=== PATIENT | male | born 1995 | race African-American/Black ===

== ENCOUNTER 2017-12-19 10:42 | Emergency (ER) | payer MEDICAID ==
[~2017-12-19] VITALS: Ht 182.9 cm; Wt 61.2 kg
[2017-12-19 11:04] VITALS: BP 122/86
== END 2017-12-19 12:17 | disposition home or self-care (01) ==
LOC: ER 10:42
DX: J02.9 Acute pharyngitis, unspecified (principal); M25.522 Pain in left elbow; R11.2 Nausea with vomiting, unspecified
CPT/HCPCS: 73080

== ENCOUNTER 2018-01-20 12:35 | Emergency (ER) | payer MEDICAID ==
[~2018-01-20] VITALS: Ht 182.9 cm; Wt 61.2 kg
[2018-01-20 12:54] VITALS: BP 134/85
[2018-01-20] MEDS ORDERED: AZITHROMYCIN 250 MG TAB PO ONE (14:15)
[2018-01-20] MEDS ORDERED: cefTRIAXone SOD 500 MG VL IM ONE (14:15)
== END 2018-01-20 14:53 | disposition home or self-care (01) ==
LOC: ER 12:35
DX: A64 Unspecified sexually transmitted disease (principal)
CPT/HCPCS: 96372; 99283; J0696

== ENCOUNTER 2018-06-24 15:07 | Emergency (ER) | payer MEDICAID ==
[~2018-06-24] VITALS: Ht 172.7 cm; Wt 65.8 kg
[2018-06-24] MEDS ORDERED: SODIUM CHLORIDE 0.9% 1,000 ML IV ONE ×4 (15:43→18:22)
[2018-06-24 15:58] LABS: Basophils # (auto) 0 uL; Basophils % (auto) 0.5 % (0.0-2.0); Eosinophils # (auto) 0.1 uL; Eosinophils % (auto) 1.7 % (0.0-7.0); Hematocrit 38.5 % (41.0-53.0); Hemoglobin 13.1 g/dL (13.5-17.5); Lymphocytes # (auto) 0.8 uL; Mean Corpuscular Hemoglobin 31.7 pg (28.0-32.0); Mean Corpuscular Volume 93.3 fL (80.0-100.0); Monocytes # (auto) 0.6 uL; Monocytes % (auto) 9.1 % (0.0-12.0); Neutrophils # (auto) 5.3 uL; Neutrophils % (auto) 77.7 % (37.0-80.0); Nucleated Red Blood Cells % 0.1 %; Platelet Count (auto) 206 10^3/uL (140-450); Red Blood Cells 4.13 10^6/uL (4.5-5.90); Red Cell Distribution Width 12.3 % (11.8-14.3); White Blood Cell 6.8 10^3/uL (4.4-10.8)
[2018-06-24 16:16] LABS: Albumin 3.7 g/dL (3.4-5.0); BUN/Creatinine Ratio 13.5; Bilirubin, Total 1.2 mg/dL (0.2-1.0); Potassium 3.4 mmol/L (3.5-5.1); Total Protein 6.4 g/dL (6.4-8.2)
[2018-06-24 17:21] LABS: Urine Amorphous Crystal MOD /hpf (None Seen); Urine Bacteria FEW /hpf (None Seen); Urine Blood 1+ /uL (Negative); Urine Mucus FEW (None Seen); Urine Specific Gravity 1.026 (1.001-1.035); Urine WBC 21 /hpf (0 - 3)
[2018-06-24 17:41] LABS: Amphetamine Screen, Urine POSITIVE (NEGATIVE); Barbiturate Scree,Urine NEGATIVE (NEGATIVE); Benzodiazephine Screen, Urine POSITIVE (NEGATIVE); Cannabinoid Screen, Urine POSITIVE (NEGATIVE); Cocaine Screen, Urine NEGATIVE (NEGATIVE); Opiate Scree,Urine NEGATIVE (NEGATIVE); Phencyclidine Screen, Urine NEGATIVE (NEGATIVE)
[2018-06-24 18:33] VITALS: BP 99/67
== END 2018-06-24 18:57 | disposition home or self-care (01) ==
LOC: ER 15:07 → EDBD 15:07 → ER 18:57
DX: T67.5XXA Heat exhaustion, unspecified, initial encounter (principal); X30.XXXA Exposure to excessive natural heat, initial encounter; Y93.89 Activity, other specified; Y99.8 Other external cause status; Y92.810 Car as the place of occurrence of the external cause
CPT/HCPCS: 36415; 70450; 80053; 80307; 81001; 82962; 85025; 96360; 96361; 99285; J7030